=== PATIENT | female | born 1985 | race Caucasian/White ===

== ENCOUNTER → 2021-05-20 07:43 | Outpatient (BNVA) | payer BC, MEDICAID, SELFPAY | PROVIDERS: Visit Provider Nurse Practitioner Family | DX: F41.9 Anxiety disorder, unspecified (principal); F32.9 Major depressive disorder, single episode, unspecified; Z98.51 Tubal ligation status; Z90.49 Acquired absence of other specified parts of digestive tract; Z98.891 History of uterine scar from previous surgery; Z13.6 Encounter for screening for cardiovascular disorders | CPT/HCPCS: 80053; 80061; 82306; 82607; 84443; 85025 ==

== ENCOUNTER → 2021-07-01 09:13 | Outpatient (BNVA) | payer BC, MEDICAID, SELFPAY | PROVIDERS: Referring Provider Nurse Practitioner Family; Visit Provider Surgery | DX: Z20.822 Contact with and (suspected) exposure to COVID-19 (principal); D17.1 Benign lipomatous neoplasm of skin and subcutaneous tissue of trunk; R22.2 Localized swelling, mass and lump, trunk | CPT/HCPCS: 87635 ==

== ENCOUNTER → 2021-09-09 13:19 | Outpatient (BNVA) | payer BC, MEDICAID, SELFPAY | PROVIDERS: Visit Provider Nurse Practitioner Family | DX: E78.5 Hyperlipidemia, unspecified (principal); E53.8 Deficiency of other specified B group vitamins | CPT/HCPCS: 80053; 80061; 82607; 83721; 84443; 85025 ==

== ENCOUNTER → 2021-09-25 10:24 | Outpatient (BNVA) | payer BC, MEDICAID, SELFPAY | PROVIDERS: Visit Provider Surgery | DX: Z01.812 Encounter for preprocedural laboratory examination (principal); Z20.822 Contact with and (suspected) exposure to COVID-19 | CPT/HCPCS: 87635 ==

== ENCOUNTER 2021-10-01 09:37 | Day surgery (SDC) | payer BC, MEDICAID, SELFPAY ==
[2021-09-30 09:35] VITALS: BMI 34.8
[2021-10-01] VITALS (9 sets, daily range): BP systolic 95–134; BP diastolic 45–84; PULSE 68–90; RESP 16–18; TEMP 36.1–36.6; O2SAT 94–98
--- NOTE | 2021-10-01 07:29 | ANES.PREANE2 ---
Pre-Anesthetic Assessment Pre-Anesthetic Assessment: Height/Weight: Height 1.63 m Weight 92.079 kg Preop Diagnosis: None Proposed Procedure: Operation Date: 10/01/21 10:30 Proposed Procedures p Excision of skin lesion of lower back 06918/D17.1(Not Applicable) - Juan Galvez MD Was Beta Andreas taken within 24 hours: N/A Was Clonidine taken within 24 hours: N/A Last intake: 09/30/21 Social: Social History: Tobacco Exam: Pre-Anes Outpt Exam: alert, oriented x 3, clear to auscultation bilaterally and regular rate & rhythm Airway: Submandibular: WNL Cervical ROM: WNL MP: 1 Dentition: False History/ROS: No significant complaints Pulmonary: Pulmonary: None reported CV/HEM: CV/HEM: None reported Comments: DLD METS > 4 : : None reported Hepatic: Hepatic: None reported GI: GI: None reported Metabolic: Metabolic: None reported Musc/skel: Musc/skel: None reported Neuropsych: Neuropsych: Anxiety and Depression Anesthetic Plan: ASA status: 2 Anesthesia: General Other: We discussed risk and benefits of general anesthesia. Patient agrees to proceed. Patient desires to quit smoking, brief tobacco cessation intervention performed with goal based coaching. Risk of > 500 ml blood loss (7ml/kg in children): No PFSH Anesthesia PFSH: Surgical History History of delivery November 2011 History of cholecystectomy 2010 at [place], [place] History of tubal ligation (11/2011) Social History Smoking and tobacco status: current every day smoker Second hand smoke exposure: Yes Lives independently: Yes Household members: spouse and children Marital status: Current occupational status: unemployed History of recent travel: No Current gender identity: Female Female Reproductive History: Date of last menstrual period: 09/24/21 Data Anesthesia Cardiac Studies: No Data to Display
--- NOTE | 2021-10-01 10:04 | W.PM.OPSFHP ---
Same Day Surgery H&P Indication for Procedure/HPI DATE OF PROCEDURE: October 01, 2021 CHIEF COMPLAINT/INDICATIONFOR SURGICAL PROCEDURE: excision mass back PREOP DIAGNOSIS: Subcutaneous mass PLANNED PROCEDRUE: Operation Date: 10/01/21 10:30 Proposed Procedures p Excision of skin lesion of lower back 23475/D17.1(Not Applicable) - Juan Galvez MD Medications/Allergies* Allergies/Adverse Reactions Allergy/AdvReac Type Severity Reaction Status Date / Time No Known Allergies Allergy Verified 09/09/21 09:20 Pertinent History/Comorbid Conditions* Surgical History (Updated 05/20/21 @ 14:24 by RUI Mackey) History of delivery November 2011 History of cholecystectomy 2010 at [place], [place] History of tubal ligation (11/2011) Social History Smoking and tobacco status: current every day smoker Second hand smoke exposure: Yes Lives independently: Yes Household members: spouse and children Marital status: Current occupational status: unemployed History of recent travel: No Current gender identity: Female Pertinent Exam Findings alert, oriented x 3 and regular rate & rhythm Recommendations Surgery/Procedure today Coding Level of Care Code Acute C[employer] Liv[employer] for [employer]
[2021-10-01] MEDS: sodium chloride 0.9% 1,000 ML 30 ML IV (10:12)
[2021-10-01 10:19] LABS: OR HCG Qualitative Urine Negative (Negative)
[2021-10-01] MEDS: lidocaine 1% INJ 20 mL INJECTION (11:18)
[2021-10-01] MEDS: HYDROcodone-acetaminophen 5-325 mg Tablet 1 TAB PO (13:00)
--- NOTE | 2021-10-01 15:32 | ANE.PACU2 ---
Inpatient post-anesthesia follow up: Airway intact: Yes Vital signs: Temperature 97.8 F Pulse Rate 77 Respiratory Rate 18 Blood Pressure 117/63 Pulse Oximetry 98 Oxygen Delivery Me thod Room Air Oxygen Flow Rate 6 Fraction of Inspir ed Oxygen Hydration adequate: Yes Nausea and vomiting: No Pain level: 3 Mental status: Baseline
--- NOTE | 2021-10-02 13:25 | PM.OP ---
Operative Report Date of procedure: October 01, 2021 Pre-op Diagnosis: Lipoma left lower back Post-op Diagnosis: 5 x 5 cm lipoma left lower back Procedure Done: Excision of lipoma left lower back Specimens removed/disposition: Lipoma left lower back Surgeon: Juan Galvez Anesthesia: MAC Condition: stable Disposition: PACU Procedure: The patient was taken to the operating room and placed in right lateral position under MAC after IV antibiotic had been administered. The area around the palpable mass was prepped and draped in sterile manner. 1% lidocaine with 0.2% Marcaine was infiltrated around the palpable mass. Using a 15 blade a 4 cm transverse incision was made, subcutaneous tissue was divided using electrocautery and the lipoma was dissected free from the surrounding subcutaneous tissue and underlying muscular fascia. The wound was irrigated with saline, hemostasis ensured and subcutaneous tissues were approximated using running 3-0 Vicryl suture and skin was closed using running subcuticular 4-0 Monocryl suture and Dermabond. The patient was transferred to recovery room in stable condition.
== END 2021-10-01 13:10 | disposition home or self-care (01) ==
PROVIDERS: Anesthesiology; PCP Nurse Practitioner Family; Visit Provider Surgery
PROC: (CPT 11406; principal; 2021-10-01 10:30)
DX: D17.1 Benign lipomatous neoplasm of skin and subcutaneous tissue of trunk (principal); F17.210 Nicotine dependence, cigarettes, uncomplicated
CPT/HCPCS: 11406; 12032; 81025; 84703; 88304; 88309; 96365; J0690; J2704; J3010; J3490; J7030

== ENCOUNTER → 2022-06-11 12:18 | Outpatient (BNVA) | payer BC, MEDICAID, SELFPAY | PROVIDERS: PCP Nurse Practitioner Family; Visit Provider Nurse Practitioner Family | DX: J44.9 Chronic obstructive pulmonary disease, unspecified (principal); E66.9 Obesity, unspecified; E53.8 Deficiency of other specified B group vitamins; E78.5 Hyperlipidemia, unspecified; F41.9 Anxiety disorder, unspecified; F32.9 Major depressive disorder, single episode, unspecified; G47.33 Obstructive sleep apnea (adult) (pediatric); R00.2 Palpitations; R06.02 Shortness of breath; R06.09 Other forms of dyspnea; R73.9 Hyperglycemia, unspecified | CPT/HCPCS: 80053; 80061; 82607; 82746; 83036; 83721; 84443 ==

== ENCOUNTER 2022-09-03 09:06 | Outpatient (CLI) | payer BC, MEDICAID, SELFPAY | END 2022-09-03 09:07 | disposition home or self-care (01) | LOC: RT 09:07 | PROVIDERS: PCP Nurse Practitioner Family; Visit Provider Nurse Practitioner Family | DX: R06.02 Shortness of breath (principal); J44.9 Chronic obstructive pulmonary disease, unspecified | CPT/HCPCS: 94060; 94726; 94729; J7613 ==

== ENCOUNTER 2022-09-15 13:00 | Outpatient (CLI) | payer BC, SELFPAY ==
[2022-09-15 15:40] LABS: Basophils # 0.1 10^3/uL (0.0-0.1); Basophils % 0.8 %; Eosinophils # 0.1 10^3/uL (0.0-0.8); Hematocrit 45.3 % (37.0-47.0); Hemoglobin 14.2 g/dL (11.5-15.3); Lymphocytes # 3.7 10^3/uL (0.8-4.8); Mean Corpuscular HGB Conc 31.3 g/dL (30.0-36.0); Mean Corpuscular Hemoglobin 28.8 pg (28.0-34.0); Mean Corpuscular Volume 91.9 fl (81-99); Mean Platelet Volume 10.6 fL (7.4-10.4); Monocytes # 0.7 10^3/uL (0.2-0.9); Monocytes % 6.8 %; Neutrophils # 5.35 10^3/uL (1.8-7.7); Neutrophils % 53.9 %; Nucleated Red Blood Cells % 0 %; Platelet Count 313 10^3/cmm (130-400); Red Blood Count 4.93 10^6/uL (4.1-5.3); Red Cell Distribution Width 13.4 % (12.1-15.1); White Blood Count 9.9 10^3/uL (4.0-10.0)
[2022-09-15 15:59] LABS: Estmated Average Glucose 108; Hemoglobin A1C 5.4 % (4.0-6.0)
[2022-09-15 17:26] LABS: Alanine Aminotransferase 11 U/L (0-33); Alkaline Phosphatase 88 U/L (35-105); Anion Gap 16.2 (5-19); Aspartate Amino Transferase 12 U/L (0-32); Blood Urea Nitrogen 3 mg/dL (6-20); Calcium 9.3 mg/dL (8.5-10.5); Carbon Dioxide 23 mmol/L (22-29); Chloride 101 mmol/L (98-107); Chol HDL Ratio 7.72 mg/dL (0.0-4.40); Cholesterol 224 mg/dL (0-200); Globulin 2.8 g/dL (1.3-4.6); Glomerular Filtration Rate 94.2 mL/min (90-130); Glucose 79 mg/dL (65-115); HDL Cholesterol 29 mg/dL (60-100); LDL Cholesterol Calculated 121 mg/dL (50-129); Osmolality Calculated 277 mOsm/kg (285-295); Potassium 4.2 mmol/L (3.5-5.1); Sodium 136 mmol/L (136-145); Total Bilirubin 0.2 mg/dL (0.15-1.2); Total Protein 6.8 g/dL (6.6-8.7); Triglycerides 372 mg/dL (0-150); VLDL Cholestrol Calculation 74 mg/dL (0-30)
== END 2022-09-15 13:01 | disposition home or self-care (01) ==
LOC: SLEEP 09-16 09:58
PROVIDERS: PCP Nurse Practitioner Family; Visit Provider Nurse Practitioner Family
DX: G47.33 Obstructive sleep apnea (adult) (pediatric) (principal); E66.9 Obesity, unspecified; J44.9 Chronic obstructive pulmonary disease, unspecified; E11.69 Type 2 diabetes mellitus with other specified complication; E78.2 Mixed hyperlipidemia; E78.5 Hyperlipidemia, unspecified; F32.9 Major depressive disorder, single episode, unspecified; F41.9 Anxiety disorder, unspecified
CPT/HCPCS: 80053; 80061; 83036; 85025; G0399

== ENCOUNTER → 2023-03-24 09:51 | Outpatient (BNVA) | payer BC, SELFPAY | PROVIDERS: PCP Nurse Practitioner Family; Visit Provider Nurse Practitioner Family | DX: E11.69 Type 2 diabetes mellitus with other specified complication (principal); E78.2 Mixed hyperlipidemia; F32.9 Major depressive disorder, single episode, unspecified; F41.9 Anxiety disorder, unspecified | CPT/HCPCS: 80053; 80061; 82607; 83036; 83735; 84443; 85025 ==

== ENCOUNTER 2023-07-09 13:48 | Outpatient (CLI) | payer BC, MEDICAID, SELFPAY ==
--- NOTE | 2023-07-09 14:00 | MM_ITS ---
WS: [id number] Bilateral diagnostic 3D tomosynthesis digital mammogram, 07/09/2023 Clinical Data: N63.0 - Unspecified lump in unspecified breast Comparison: None. Findings: The breast parenchymal pattern shows fibroglandular tissue. There are lymph nodes in both axilla. The re are no spiculated masses nor clustered calcifications. There are no secondary signs of carcinoma. Impression: 1. Negative bilateral mammograms with no prior exam for review. 2. Left breast ultrasound will be performed. MM/[place] [id number] BIRADS: 2-Benign FOLLOW UP: See Report The CAD quality checker was used.
--- NOTE | 2023-07-09 14:45 | US_ITS ---
WS: [id number] Left breast ultrasound, 07/09/2023 Clinical Data: N63.0 - Unspecified lump in unspecified breast Comparison: None. Findings: The upper inner quadrant of the left breast was imaged. Only normal breast tissue could be seen. Ther e were no cysts or masses. Impression: 1 negative left breast ultrasound. 2. Return to clinical evaluation. US/US breast LT limited* [id number] BIRADS: 2-Benign FOLLOW UP: See Report
== END 2023-07-09 13:49 | disposition home or self-care (01) ==
PROVIDERS: PCP Nurse Practitioner Family; Visit Provider Family Medicine
DX: N63.0 Unspecified lump in unspecified breast (principal)
CPT/HCPCS: 76642; 77062; G0279

== ENCOUNTER → 2024-10-17 15:30 | Outpatient (BNVA) | payer MEDICAID, SELFPAY | PROVIDERS: PCP Nurse Practitioner Family; Visit Provider Nurse Practitioner Family | DX: F41.9 Anxiety disorder, unspecified (principal); F32.9 Major depressive disorder, single episode, unspecified | CPT/HCPCS: 80053; 80061; 82306; 82607; 83036; 83721; 84443; 85025 ==